=== PATIENT | female | born 1960 | race Caucasian/White ===

== ENCOUNTER 2017-10-14 17:19 | Inpatient (IN) | payer BC ==
[2017-10-14] MEDS ORDERED: ACETAMINOPHEN 1,000 MG/100 ML BTL IVPB ONE (18:15)
[2017-10-14] MEDS ORDERED: 0.9 % SODIUM CHLORIDE 1000ML 1,000 ML IV SCH (18:15)
--- NOTE | 2017-10-14 18:18 | Emergency Department Record ---
History of Present Illness - General Chief complaint: Flank Pain Stated complaint: FLANK PAIN/NAUSEA Time Seen by Provider: 10/14/17 18:14 Source: Patient Mode of Arrival: Ambulatory Limitations: No limitations - History of Present Illness Initial comments: 57 yo female presents to ED for evaluation of flank pain, urinary urgency, chills, and myalgias that began 3 days ago. Patient reports a history of Lupus , currently takes methotrexate for her symptoms. Patient was told to come to ED for evaluation by her [employer] Specialist. Patient also reports a history of Stage III renal disease resulting from her Lupus. Patient denies vomiting or change in stools, and denies cough/congestion symptoms. MD Complaint: Dysuria Onset/Timin -: Days(s) Radiation: L flank, R flank Severity: Moderate Quality: Aching Consistency: Constant Improves with: None Worsens with: Urination Patient : No Associated Symptoms: Abdominal pain, Dysuria, Fever/chills - Related Data Home Medications Medication Instructions Recorded Confirmed Last Taken Alendronate Sodium [Fosamax] 70 mg PO DAILY 10/14/17 10/14/17 Unknown Alendronate Sodium [Fosamax] 70 mg PO DAILY 10/14/17 10/14/17 Unknown Allopurinol [Zyloprim] 300 mg PO DAILY 10/14/17 10/14/17 Unknown Allopurinol [Zyloprim] 300 mg PO DAILY 10/14/17 10/14/17 Unknown Atorvastatin Calcium [Lipitor] 10 mg PO DAILY 10/14/17 10/14/17 Unknown Cetirizine HCl 10 mg PO DAILY 10/14/17 10/14/17 Unknown Cyclobenzaprine HCl 10 mg PO DAILY 10/14/17 10/14/17 Unknown Diltiazem HCl [Diltiazem 24Hr ER] 120 mg PO DAILY 10/14/17 10/14/17 Unknown Diphenhydramine HCl [Benadryl] 25 mg PO DAILY 10/14/17 10/14/17 Unknown Duloxetine HCl [Cymbalta] 60 mg PO DAILY 10/14/17 10/14/17 Unknown Ergocalciferol (Vitamin D2) 50,000 unit PO WEEKLY 10/14/17 10/14/17 Unknown [Vitamin D2] Fexofenadine HCl [Esthela Allergy] 60 mg PO DAILY 10/14/17 10/14/17 Unknown Fluticasone/Vilanterol [Breo 1 each IH DAILY 10/14/17 10/14/17 Unknown Ellipta 200-25 Mcg INH] Folic Acid 1 mg PO DAILY 10/14/17 10/14/17 Unknown Ibuprofen [Advil] 200 mg PO DAILY 10/14/17 10/14/17 Unknown Levothyroxine Sodium 125 mcg PO DAILY 10/14/17 10/14/17 Unknown Methocarbamol [Robaxin] 1 tab PO DAILY 10/14/17 10/14/17 Unknown Methotrexate Sodium [Trexall] 2.5 mg PO DAILY 10/14/17 10/14/17 Unknown Nystatin 5 ml PO DAILY 10/14/17 10/14/17 Unknown Ondansetron HCl [Zofran] 4 mg PO ASDIR 10/14/17 10/14/17 Unknown Ondansetron HCl [Zofran] 4 mg PO DAILY 10/14/17 10/14/17 Unknown Sitagliptin Phosphate [Januvia] 50 mg PO DAILY 10/14/17 10/14/17 Unknown Topiramate [Topamax] 50 mg PO DAILY 10/14/17 10/14/17 Unknown Allergies Allergy/AdvReac Type Severity Reaction Status Date / Time celecoxib [From Celebrex] Allergy HIVES Verified 10/14/17 18:25 Penicillins Allergy PT UNSURE Verified 10/14/17 18:25 OF REACTION Review of Systems Constitutional: Reports: Chills, Malaise. Denies: Fever, Night sweats Eyes: Denies: Eye discharge, Eye pain ENT: Denies: Congestion, Ear pain, Epistaxis Respiratory: Denies: Cough, Dyspnea Cardiovascular: Denies: Chest pain, Dyspnea on exertion Endocrine: Denies: Fatigue, Heat or cold intolerance Gastrointestinal: Reports: Abdominal pain, Nausea. Denies: Constipation, Vomiting Genitourinary: Reports: Dysuria, Frequency. Denies: Incontinence, Retention Musculoskeletal: Reports: Back pain, Myalgia. Denies: Arthralgia Skin: Denies: Bruising, Change in color Neurological: Denies: Abnormal gait, Confusion, Headache, Tingling, Tremors Psychiatric: Denies: Anxiety Hematological/Lymphatic: Denies: Anemia, Blood Clots Physical Exam - General General Appearance: Alert, Oriented x3, Cooperative, Moderate distress Limitations: No limitations - Head Head exam: Atraumatic, Normocephalic, Normal inspection Head exam detail: negative: Abrasion, Contusion, Elam's sign, General tenderness, Hematoma, Laceration - Eye Eye exam: Normal appearance. negative: Conjunctival injection, Periorbital swelling, Periorbital tenderness, Scleral icterus - ENT Ear exam: negative: Auricular hematoma, Auricular trauma Nasal Exam: negative: Active bleeding, Discharge, Dried blood, Foreign body Mouth exam: negative: Drooling, Laceration, Muffled voice, Tongue elevation - Neck Neck exam: Normal inspection. negative: Meningismus, Tenderness - Respiratory Respiratory exam: Normal lung sounds bilaterally. negative: Respiratory distress, Rhonchi, Stridor, Wheezes - Cardiovascular Cardiovascular Exam: Regular rate, Normal rhythm, Normal heart sounds - GI/Abdominal GI/Abdominal exam: Soft, Tenderness (TTP to the suprapubic region on examination , no rebound or guarding are present.). negative: Rebound, Rigid - Rectal Rectal exam: Deferred - exam: Deferred - Extremities Extremities exam: Normal inspection. negative: Calf tenderness, Pedal edema, Tenderness - Back Back exam: Reports: CVA tenderness (R), CVA tenderness (L) - Neurological Neurological exam: Alert, Normal gait, Oriented X3 - Psychiatric Psychiatric exam: Anxious, Normal affect. negative: Agitated - Skin Skin exam: Normal color. negative: Abrasion Type of lesion: negative: abrasion Course - Reevaluation(s) Reevaluation #1: 10/14/17 19:01 Labs reviewed: WBC 14.3 UA reviewed: >50 WBCs 10-15 RBCs Few Bacteria 0-2 Epithelial cells Rocephin ordered in addition to Ofirmev (hanging currently). Reevaluation #2: 10/14/17 19:16 Comprehensive panel has resulted: Lipase 93 BUN 23/Creatinine 1.3. Rocephin is infusing, will admit for further evaluation. Reevaluation #3: 10/14/17 19:25 Patient was updated on all results, and reports that her symptoms are greatly improved following Ofirmev. Temperature down to 100.8. Will admit for treatment of her Pyelonephritis at this time. There is no clinical suspicion for infected ureteral stone given the patient's history and examination. Case was discussed with Michelle (admitting PA) who is in agreement with the plan of care as discussed. Medical Decision Making - Lab Data Result diagrams: 10/14/17 18:30 10/14/17 18:30 Disposition Disposition: Admit Clinical Impression: Pyelonephritis Disposition: Still a Patient at [facility] Decision to Admit: Admit from ER Decision to Admit Date: 10/14/17 Decision to Admit Time: 19:17 Condition: (2) Stable Time of Disposition: 19:17 Quality - Quality Measures Quality Measures: N/A - Blood Pressure Screening Does Patient Have Any of the Following: No Blood Pressure Classification: Hypertensive Reading Systolic Measurement: 160 Diastolic Measurement: 79 Screening for High Blood Pressure: < First Hypertensive BP, F/U Documented > [ [id number]] First Hypertensive Follow-up Interventions: Referral to alternative/primary care provider.
[2017-10-14 18:42] LABS: BASO % 0.3 % (0-6); EOS % 1.4 % (0-6); HEMATOCRIT 46.6 % (35.0-47.0); HEMOGLOBIN 14.9 gm/dl (11.6-16.0); LYMPH % 8.2 % (16-45); MEAN CELL VOLUME 98.9 fl (81-97); MEAN CORPUSCULAR HEMOGLOBIN 31.6 pg (27-33); MEAN PLATELET VOLUME 9.5 fl (7.4-10.4); MONO % 10.1 % (0-9); PLATELET COUNT 354 K/uL (130-400); RED BLOOD COUNT 4.71 M/uL (3.80-5.40); RED CELL DISTRIBUTION WIDTH 14.6 % (11.5-14.5); WHITE BLOOD COUNT W/O DIFF 14.3 K/uL (4.2-12.2)
[2017-10-14 18:43] LABS: URINE APPEARANCE CLEAR; URINE BILIRUBIN NEGATIVE (NEGATIVE); URINE BLOOD LARGE (NEGATIVE); URINE COLOR YELLOW; URINE GLUCOSE (UA) NEGATIVE (NEGATIVE); URINE KETONE NEGATIVE (NEGATIVE); URINE LEUKOCYTE ESTERASE LARGE (NEGATIVE); URINE NITRITE NEGATIVE (NEGATIVE); URINE PROTEIN TRACE (NEGATIVE); URINE UROBILINOGEN 0.2 E.U./dL (0.20 - 1.00)
[2017-10-14 18:51] LABS: URINE BACTERIA FEW; URINE EPITHELIAL CELLS 0 - 2 (FEW); URINE WBC >50 (0-2/hpf)
[2017-10-14 18:58] LABS: BILIRUBIN,TOTAL 0.2 mg/dL (0.2-1.0); CREATININE 1.3 mg/dL (0.5-0.9)
[2017-10-14 18:59] LABS: TOTAL PROTEIN 7.2 g/dL (6.6-8.7)
[2017-10-14] MEDS ORDERED: CEFTRIAXONE SODIUM 1 GM in 0.9 % SODIUM CHLORIDE 100ML 100 ML IVPB ONE (19:02)
[2017-10-14 19:03] LABS: ALB/GLOB RATIO 1.7 (1.1-1.8); ALBUMIN 4.5 g/dL (4.0-5.0)
[2017-10-14] MEDS ORDERED: IBUPROFEN 600 MG TABLET PO PRN (20:11)
[2017-10-14] MEDS ORDERED: CEFTRIAXONE SODIUM 1 GM in 0.9 % SODIUM CHLORIDE 100ML 100 ML IVPB SCH (20:11)
[2017-10-14] MEDS ORDERED: 0.9 % SODIUM CHLORIDE 1000ML 1,000 ML IV PRN (20:11)
[2017-10-14] MEDS: ATORVASTATIN 20 MG TABLET PO SCH (21:30)
[2017-10-14] MEDS: DULOXETINE HCL 30 MG CAPSULE.DR PO SCH (21:30)
[2017-10-15] MEDS: ACETAMINOPHEN 500 MG TABLET PO PRN ×2 (06:28→12:41)
[2017-10-15] MEDS: LEVOTHYROXINE SODIUM 125 MCG TABLET PO SCH (07:00)
[2017-10-15] MEDS: DULOXETINE HCL 30 MG CAPSULE.DR PO SCH (09:33)
[2017-10-15] MEDS: TOPIRAMATE 25MG TABLET PO SCH (09:33)
[2017-10-15] MEDS: LORATADINE 10 MG TABLET PO SCH (09:34)
[2017-10-15] MEDS: ALLOPURINOL 100 MG TAB PO SCH (09:34)
[2017-10-15] MEDS: DILTIAZEM HCL 120 MG ER CAPSULE PO SCH (09:34)
[2017-10-15] MEDS: CYCLOBENZAPRINE 10MG TABLET PO SCH (09:40)
[2017-10-15] MEDS: JANUVIA 50 MG MC SCH (09:40)
[2017-10-15 09:58] LABS: HEMATOCRIT 39.6 % (35.0-47.0); HEMOGLOBIN 12.7 gm/dl (11.6-16.0); MEAN CELL VOLUME 98.3 fl (81-97); MEAN CORPUSCULAR HEMOGLOBIN 31.5 pg (27-33); MEAN CORPUSCULAR HGB CONC 32.1 g/dl (32-36); MEAN PLATELET VOLUME 9.6 fl (7.4-10.4); PLATELET COUNT 288 K/uL (130-400); RED BLOOD COUNT 4.03 M/uL (3.80-5.40); RED CELL DISTRIBUTION WIDTH 14.5 % (11.5-14.5); WHITE BLOOD COUNT W/O DIFF 15.8 K/uL (4.2-12.2)
[2017-10-15 09:59] LABS: ALB/GLOB RATIO 1.5 (1.1-1.8); ALBUMIN 3.6 g/dL (4.0-5.0); BILIRUBIN,TOTAL 0.5 mg/dL (0.2-1.0); CREATININE 1.3 mg/dL (0.5-0.9)
[2017-10-15] MEDS ORDERED: Non-Formulary MISC (Duloxetine Hcl [Cymbalta] 60 MG) PO SCH (10:00)
[2017-10-15] MEDS ORDERED: CETIRIZINE HCL 10 MG PO SCH (10:00)
[2017-10-15] MEDS ORDERED: Non-Formulary MISC (Atorvastatin Calcium [Lipitor] 10 MG) PO SCH (10:00)
[2017-10-15] MEDS ORDERED: ALENDRONATE SODIUM 70 MG PO SCH (10:00)
[2017-10-15] MEDS ORDERED: METHOCARBAMOL PO SCH (10:00)
[2017-10-15] MEDS ORDERED: CYCLOBENZAPRINE 10MG TABLET PO SCH (10:00)
[2017-10-15] MEDS ORDERED: LEVOTHYROXINE SODIUM 125 MCG PO SCH (10:00)
[2017-10-15] MEDS ORDERED: DULOXETINE HCL 30 MG CAPSULE.DR PO SCH (10:00)
[2017-10-15] MEDS ORDERED: ALLOPURINOL 300 MG PO SCH (10:00)
[2017-10-15] MEDS ORDERED: SITAGLIPTIN PHOSPHATE 50 MG PO SCH (10:00)
[2017-10-15] MEDS ORDERED: BREO (FLUTICASONE/VILANTEROL) 200MCG/25MCG INHALER INH SCH (10:00)
[2017-10-15] MEDS ORDERED: METHOTREXATE SODIUM 2.5 MG PO SCH (10:00)
[2017-10-15] MEDS ORDERED: TOPIRAMATE 50 MG PO SCH (10:00)
[2017-10-15] MEDS: BREO (FLUTICASONE/VILANTEROL) 200MCG/25MCG INHALER INH SCH (10:29)
--- NOTE | 2017-10-15 12:18 | History & Physical ---
History of Present Illness - Date of Service Date of Service for History & Physical: 10/15/17 - History of Present Illness Admitting Diagnosis: Pyelonephritis. Immunosuppessed status History of Present Illness: Mrs. Gutiérrez is a 57 year-old female who presented the the ED on with complaint of flank pain, urinary urgency, chills, and myalgias that began 3 days prior. She was advised to come to the ED for evaluation by her navigating officer. She denied vomiting, cough/congestion, but she did report some diarrhea for 3 days. Her history includes lupus (currently taking methotrexate) , state III renal disease from lupus, fibro, hypothyroidism, palpitations, asthma, and DM. In the ED, her vitals were: BP 185/94, RR 20, HR 123, 99% on RA, and T 102.8F. Labs revealed WBC 14.3, BUN 23/creatinine 1.3, UA > 50 WBCs, 10-15 RBCs , few bacteria, 0-2 epithelial cells. She was started on IV rocephin 1gm and a dose of ofirmev was administered. Her temp did decrease to 100.8F. Based on her comorbidities, immunosuppression, and UA, she was admitted for management of pyelonephritis. 10/15/17 1000: Pt. is resting in bed. She reports improved flank pain, however, she states she is till experiencing bladder spasms and urinary urgency. She has remained afebrile since last night. Repeat labs today showed WBC of 15.8, BUN 18/ Creatinine 1.3. IV abx changed to Cipro 500mg bid and added pyridium 90mg tid for symptom control. Urine culture is pending. Holding methotrexate during admission d/t current infection. Will continue to monitor and recheck labs tomorrow morning. Travel Screening - Travel/Exposure Within Last 30 Days Have you traveled within the last 30 days?: Yes Location Detail:: [place] - Travel/Exposure Within Last Year Have you traveled outside the [place] in the last year?: Yes Location Detail:: cruise [place], [place], [place] - Additonal Travel Details Have you been exposed to anyone with a communicable illness?: No - Travel Symptoms Symptom Screening: None Review of Systems Constitutional: Reports: Chills, Malaise. Denies: Fever, Night sweats Eyes: Denies: Eye discharge, Eye pain ENT: Denies: Congestion, Ear pain, Epistaxis Respiratory: Denies: Cough, Dyspnea Cardiovascular: Denies: Chest pain, Dyspnea on exertion Endocrine: Denies: Fatigue, Heat or cold intolerance Gastrointestinal: Reports: Abdominal pain, Nausea. Denies: Constipation, Vomiting Genitourinary: Reports: Dysuria, Frequency. Denies: Incontinence, Retention Musculoskeletal: Reports: Back pain, Myalgia. Denies: Arthralgia Skin: Denies: Bruising, Change in color Neurological: Denies: Abnormal gait, Confusion, Headache, Tingling, Tremors Psychiatric: Denies: Anxiety Hematological/Lymphatic: Denies: Anemia, Blood Clots Past Medical History - SOCIAL HISTORY Smoking Status: Never smoker Alcohol Use: None Drug Use: None - RESPIRATORY Hx Respiratory Disorders: Yes Hx Asthma: Yes - CARDIOVASCULAR Hx Cardio Disorders: Yes Hx Palpitations: Yes - NEURO Hx Neuro Disorders: No - GI Hx GI Disorders: Yes - Hx Genitourinary Disorders: Yes Hx Renal Disease: Yes - ENDOCRINE Hx Endocrine Disorders: Yes Hx Diabetes: Yes Hx Thyroid Disease: Yes - MUSCULOSKELETAL Hx Musculoskeletal Disorders: Yes Hx Fibromyalgia: Yes Comment:: lupus - PSYCH Hx Psych Problems: No - HEMATOLOGY/ONCOLOGY Hx Hematology/Oncology Disorders: No Family Medical History Any Significant Family History?: No H&P Meds/Allergies - Allergies Allergies: Allergies Allergy/AdvReac Type Severity Reaction Status Date / Time celecoxib [From Celebrex] Allergy HIVES Verified 10/14/17 18:25 Penicillins Allergy PT UNSURE Verified 10/14/17 18:25 OF REACTION - Home Medications Home Medications Medication Instructions Recorded Confirmed Last Taken Alendronate Sodium [Fosamax] 70 mg PO DAILY 10/14/17 10/14/17 Unknown Alendronate Sodium [Fosamax] 70 mg PO DAILY 10/14/17 10/14/17 Unknown Allopurinol [Zyloprim] 300 mg PO DAILY 10/14/17 10/14/17 Unknown Allopurinol [Zyloprim] 300 mg PO DAILY 10/14/17 10/14/17 Unknown Atorvastatin Calcium [Lipitor] 10 mg PO DAILY 10/14/17 10/14/17 Unknown Cetirizine HCl 10 mg PO DAILY 10/14/17 10/14/17 Unknown Cyclobenzaprine HCl 10 mg PO DAILY 10/14/17 10/14/17 Unknown Diltiazem HCl [Diltiazem 24Hr ER] 120 mg PO DAILY 10/14/17 10/14/17 Unknown Diphenhydramine HCl [Benadryl] 25 mg PO DAILY 10/14/17 10/14/17 Unknown Duloxetine HCl [Cymbalta] 60 mg PO DAILY 10/14/17 10/14/17 Unknown Ergocalciferol (Vitamin D2) 50,000 unit PO WEEKLY 10/14/17 10/14/17 Unknown [Vitamin D2] Fexofenadine HCl [Esthela Allergy] 60 mg PO DAILY 10/14/17 10/14/17 Unknown Fluticasone/Vilanterol [Breo 1 each IH DAILY 10/14/17 10/14/17 Unknown Ellipta 200-25 Mcg INH] Folic Acid 1 mg PO DAILY 10/14/17 10/14/17 Unknown Ibuprofen [Advil] 200 mg PO DAILY 10/14/17 10/14/17 Unknown Levothyroxine Sodium 125 mcg PO DAILY 10/14/17 10/14/17 Unknown Methocarbamol [Robaxin] 1 tab PO DAILY 10/14/17 10/14/17 Unknown Methotrexate Sodium [Trexall] 2.5 mg PO DAILY 10/14/17 10/14/17 Unknown Nystatin 5 ml PO DAILY 10/14/17 10/14/17 Unknown Ondansetron HCl [Zofran] 4 mg PO ASDIR 10/14/17 10/14/17 Unknown Ondansetron HCl [Zofran] 4 mg PO DAILY 10/14/17 10/14/17 Unknown Sitagliptin Phosphate [Januvia] 50 mg PO DAILY 10/14/17 10/14/17 Unknown Topiramate [Topamax] 50 mg PO DAILY 10/14/17 10/14/17 Unknown - Active Medications Active Medications: Current Medications Acetaminophen (Tylenol 500mg Tab) 1,000 mg PO Q6H PRN PRN Reason: PAIN - MILD(1-4)/FEVER Last Admin: 10/15/17 06:28 Dose: 1,000 mg Allopurinol (Zyloprim) 300 mg PO DAILY [facility] Last Admin: 10/15/17 09:34 Dose: 300 mg Atorvastatin Calcium (Lipitor) 10 mg PO QHS [facility] Last Admin: 10/14/17 21:30 Dose: 10 mg Ciprofloxacin (Cipro) 500 mg PO Q12HR [facility] Stop: 10/21/17 11:01 Cyclobenzaprine HCl (Flexeril) 10 mg PO DAILY [facility] Last Admin: 10/15/17 09:40 Dose: Not Given Cyclobenzaprine HCl (Flexeril) 10 mg PO DAILY [facility] Last Admin: 10/15/17 09:40 Dose: Not Given Diltiazem HCl (Cardizem Cd) 120 mg PO DAILY [facility] Last Admin: 10/15/17 09:34 Dose: 120 mg Duloxetine HCl (Cymbalta) 120 mg PO DAILY [facility] Last Admin: 10/15/17 09:33 Dose: 120 mg Ibuprofen (Motrin 600mg) 600 mg PO Q6H PRN PRN Reason: FEVER Levothyroxine Sodium (Synthroid) 125 mcg PO DAILYTHY [facility] Last Admin: 10/15/17 07:00 Dose: 125 mcg Loratadine (Claritin) 10 mg PO DAILY [facility] Last Admin: 10/15/17 09:34 Dose: 10 mg Non-Formulary Medication (Alendronate Sodium [Fosamax]) 70 mg PO DAILY [facility] Non-Formulary Medication (Methotrexate Sodium [Trexall]) 2.5 mg PO DAILY [facility] Patient Own Med: (Januvia 50mg) 1 each MC DAILY [facility] Last Admin: 10/15/17 09:40 Dose: 1 each Phenazopyridine HCl (Azo Urinary Pain Relief) 95 mg PO TID [facility] Topiramate (Topiramate) 50 mg PO DAILY [facility] Last Admin: 10/15/17 09:33 Dose: 50 mg Physical Exam - Vital Signs Vital Signs: Vital Signs - Last 24 Hrs Temp Pulse Pulse Resp BP BP Pulse Ox 10/15/17 10:00 98.2 F 119 H 20 153/82 93 L 10/15/17 09:00 20 10/15/17 06:33 98.7 F 124 H 16 150/86 95 10/15/17 03:52 98.7 F 120 H 16 156/95 95 10/14/17 21:00 16 10/14/17 20:11 98.9 F 112 H 16 153/86 100 10/14/17 19:52 100.8 F H 120 H 96 H 160/79 10/14/17 18:36 102.8 F H 123 H 20 185/94 99 - General General Appearance: Alert, Oriented x3, Cooperative, No acute distress Limitations: No limitations - Head Head exam: Atraumatic, Normocephalic, Normal inspection Head exam detail: negative: Abrasion, Contusion, Elam's sign, General tenderness, Hematoma, Laceration - Eye Eye exam: Normal appearance. negative: Conjunctival injection, Periorbital swelling, Periorbital tenderness, Scleral icterus - ENT Ear exam: negative: Auricular hematoma, Auricular trauma Nasal Exam: negative: Active bleeding, Discharge, Dried blood, Foreign body Mouth exam: negative: Drooling, Laceration, Muffled voice, Tongue elevation - Neck Neck exam: Normal inspection. negative: Meningismus, Tenderness - Respiratory Respiratory exam: Normal lung sounds bilaterally. negative: Respiratory distress, Rhonchi, Stridor, Wheezes - Cardiovascular Cardiovascular Exam: Regular rate, Normal rhythm, Normal heart sounds - GI/Abdominal GI/Abdominal exam: Soft, Normal bowel sounds, Tenderness (TTP to the suprapubic region on examination, no rebound or guarding are present.). negative: Rebound , Rigid - Rectal Rectal exam: Deferred - exam: Deferred - Extremities Extremities exam: Normal inspection. negative: Calf tenderness, Pedal edema, Tenderness - Back Back exam: Denies: CVA tenderness (R), CVA tenderness (L) - Neurological Neurological exam: Alert, Normal gait, Oriented X3 - Psychiatric Psychiatric exam: Anxious, Normal affect. negative: Agitated - Skin Skin exam: Normal color. negative: Abrasion Type of lesion: negative: abrasion Results - Labs Result Diagrams: 10/15/17 09:26 10/15/17 09:26 Labs Last 24 Hours: Laboratory Results - last 24 hr 10/14/17 10/14/17 10/14/17 18:30 18:30 18:30 WBC 14.3 H RBC 4.71 Hgb 14.9 Hct 46.6 MCV 98.9 H MCH 31.6 MCHC 32.0 RDW 14.6 H Plt Count 354 MPV 9.5 Gran % 80.0 Neutrophils % Lymphocytes % 8.2 L Monocytes % 10.1 H Eosinophils % 1.4 Basophils % 0.3 Lymphocytes Monocytes Sodium 140 Potassium 3.8 Chloride 101 Carbon Dioxide 26.0 Anion Gap 13.0 BUN 23 H Creatinine 1.3 H Estimated GFR 45 POC Glucose Random Glucose 160 H Lactic Acid Calcium 10.9 H Total Bilirubin 0.20 AST 19 ALT 19 Alkaline Phosphatase 81 Total Protein 7.2 Albumin 4.5 Globulin 2.7 Albumin/Globulin Ratio 1.7 Lipase 93 H Urine Color Yellow Urine Appearance Clear Urine pH 6.5 Ur Specific [place] 1.015 Urine Protein Trace H Urine Glucose (UA) Negative Urine Ketones Negative Urine Blood Large H Urine Nitrite Negative Urine Bilirubin Negative Urine Urobilinogen 0.2 Ur Leukocyte Esterase Large H Urine RBC 10 - 15 Urine WBC >50 Ur Epithelial Cells 0 - 2 Urine Bacteria Few 10/14/17 10/15/17 10/15/17 19:10 07:30 09:26 WBC 15.8 H RBC 4.03 Hgb 12.7 Hct 39.6 MCV 98.3 H MCH 31.5 MCHC 32.1 RDW 14.5 Plt Count 288 MPV 9.6 Gran % Neutrophils % 80.0 Lymphocytes % Monocytes % Eosinophils % Not Reportable Basophils % Not Reportable Lymphocytes 9.0 L Monocytes 11.0 H Sodium Potassium Chloride Carbon Dioxide Anion Gap BUN Creatinine Estimated GFR POC Glucose 138 H Random Glucose Lactic Acid 2.1 Calcium Total Bilirubin AST ALT Alkaline Phosphatase Total Protein Albumin Globulin Albumin/Globulin Ratio Lipase Urine Color Urine Appearance Urine pH Ur Specific [place] Urine Protein Urine Glucose (UA) Urine Ketones Urine Blood Urine Nitrite Urine Bilirubin Urine Urobilinogen Ur Leukocyte Esterase Urine RBC Urine WBC Ur Epithelial Cells Urine Bacteria 10/15/17 09:26 WBC RBC Hgb Hct MCV MCH MCHC RDW Plt Count MPV Gran % Neutrophils % Lymphocytes % Monocytes % Eosinophils % Basophils % Lymphocytes Monocytes Sodium 140 Potassium 3.8 Chloride 104 Carbon Dioxide 23.0 Anion Gap 13.0 BUN 18 Creatinine 1.3 H Estimated GFR 45 POC Glucose Random Glucose 173 H Lactic Acid Calcium 10.4 H Total Bilirubin 0.50 AST 13 ALT 14 Alkaline Phosphatase 62 Total Protein 6.0 L Albumin 3.6 L Globulin 2.4 Albumin/Globulin Ratio 1.5 Lipase Urine Color Urine Appearance Urine pH Ur Specific [place] Urine Protein Urine Glucose (UA) Urine Ketones Urine Blood Urine Nitrite Urine Bilirubin Urine Urobilinogen Ur Leukocyte Esterase Urine RBC Urine WBC Ur Epithelial Cells Urine Bacteria VTE H&P Assessment - Risk for VTE Risk for VTE: Yes Risk Level: Low Risk Assessment Date: 10/15/17 Risk Assessment Time: 12:39 VTE Orders Placed or Will Be Placed: Yes Plan - Inpatient Certification Inpatient Certification: Admit to inpatient care: Based on my medical assessment, after consideration of patient's risk factors (age, co-morbidities and patient presenting symptoms and acuity), I expect that this patient will remain in the hospital greater than or equal to two midnights and that the services needed warrant inpatient care because: Patient Risk Factors: [comorbidities, immunosuppression] Estimated length of stay: [48-72 hours] The patient may reasonably be expected to be discharged or transferred to a hospital within 96 hours after admission to [facility]. Services needed: [IV abx, lab monitoring of renal function and inflammation] Post hospital care (if known): [] I certify that my determination is in accordance with my understanding of Medicare requirements for reasonable and necessary inpatient services. 10/15/17 12:39 - Detailed Diagnosis and Plan (1) Pyelonephritis Current Visit: Yes Status: Acute Base Code: N12 - TUBULO-INTERSTITIAL NEPHRITIS, NOT SPCF ACUTE OR CHRONIC Comment: 10/15/17: -UA in ED pos. for large blood and leuks, sent for culture -Dx with pyelonephritis based on presenting S/S, febrile, elevated WBC, bilateral flank pain -Changed IV rocephin to PO cipro 500mg bid for total of 7 days, added pyridium for urinary pain -Will continue to monitor vital signs and labs (2) Immunosuppression Current Visit: Yes Status: Acute Base Code: D89.9 - DISORDER INVOLVING THE IMMUNE MECHANISM, UNSPECIFIED Comment: 10/15/17: -Immunosuppression secondary to methotrexate use with lupus -Will hold methotrexate during hospitalization due to current pyelonephritis -Will continue to monitor labs and immune response with WBC differential (3) At risk for deep venous thrombosis Current Visit: Yes Status: Acute Base Code: Z91.89 - OTH PERSONAL RISK FACTORS, NOT ELSEWHERE CLASSIFIED Comment: 10/15/17: -40mg SC lovenox ordered for DVT prophylaxis (4) Full code status Current Visit: Yes Status: Acute Base Code: Z78.9 - OTHER SPECIFIED HEALTH STATUS Comment: 10/15/17: -Pt. is a full code
[2017-10-15] MEDS: CIPROFLOXACIN HCL 500 MG TABLET PO SCH ×2 (12:38→21:27)
[2017-10-15] MEDS: PHENAZOPYRIDINE HCL 95 MG TABLET PO SCH ×3 (12:52→22:00)
[2017-10-15] MEDS: IBUPROFEN 600 MG TABLET PO PRN (15:29)
[2017-10-15] MEDS: ENOXAPARIN 40 MG/0.4 ML SYR SQ SCH (21:27)
[2017-10-15] MEDS: ATORVASTATIN 20 MG TABLET PO SCH (21:27)
[2017-10-16] MEDS: LEVOTHYROXINE SODIUM 125 MCG TABLET PO SCH (06:14)
[2017-10-16] MEDS: ACETAMINOPHEN 500 MG TABLET PO PRN ×3 (06:16→21:18)
[2017-10-16 06:38] LABS: BASO % 0.2 % (0-6); EOS % 2.3 % (0-6); GRAN % 79.7 % (47-80); HEMATOCRIT 41.4 % (35.0-47.0); HEMOGLOBIN 13.2 gm/dl (11.6-16.0); LYMPH % 8.1 % (16-45); MEAN CELL VOLUME 98.6 fl (81-97); MEAN CORPUSCULAR HEMOGLOBIN 31.4 pg (27-33); MEAN CORPUSCULAR HGB CONC 31.9 g/dl (32-36); MEAN PLATELET VOLUME 9.5 fl (7.4-10.4); MONO % 9.7 % (0-9); PLATELET COUNT 270 K/uL (130-400); RED CELL DISTRIBUTION WIDTH 14.2 % (11.5-14.5); WHITE BLOOD COUNT W/O DIFF 10.1 K/uL (4.2-12.2)
[2017-10-16 06:53] LABS: ALB/GLOB RATIO 1.4 (1.1-1.8); ALBUMIN 3.9 g/dL (4.0-5.0); BILIRUBIN,TOTAL 0.4 mg/dL (0.2-1.0); CREATININE 1.2 mg/dL (0.5-0.9); TOTAL PROTEIN 6.7 g/dL (6.6-8.7)
[2017-10-16] MEDS: IBUPROFEN 600 MG TABLET PO PRN (08:16)
[2017-10-16] MEDS: BREO (FLUTICASONE/VILANTEROL) 200MCG/25MCG INHALER INH SCH (10:14)
[2017-10-16] MEDS: ALLOPURINOL 100 MG TAB PO SCH (10:26)
[2017-10-16] MEDS: ENOXAPARIN 40 MG/0.4 ML SYR SQ SCH (10:26)
[2017-10-16] MEDS: DULOXETINE HCL 30 MG CAPSULE.DR PO SCH (10:26)
[2017-10-16] MEDS: TOPIRAMATE 25MG TABLET PO SCH (10:27)
[2017-10-16] MEDS: CIPROFLOXACIN HCL 500 MG TABLET PO SCH ×2 (10:27→21:12)
[2017-10-16] MEDS: LORATADINE 10 MG TABLET PO SCH (10:27)
[2017-10-16] MEDS: CYCLOBENZAPRINE 10MG TABLET PO SCH (10:27)
[2017-10-16] MEDS: DILTIAZEM HCL 120 MG ER CAPSULE PO SCH (10:27)
[2017-10-16] MEDS: PHENAZOPYRIDINE HCL 95 MG TABLET PO SCH ×3 (10:29→21:14)
[2017-10-16] MEDS: JANUVIA 50 MG MC SCH (10:34)
--- NOTE | 2017-10-16 16:54 | Physician Progress Note ---
Subjective - Date Date of Physician Progress Note: 10/16/17 - Subjective Subjective Comment: Temp of 101.4 this morning 2 hours after acetominophen 1,000mg administration. Ibuprofen 600mg was administered. CT ordered to assess possible underlying cause of infection/obstruction. (without contrast due to pt's renal function) Inflammatory response may be inaccurate with immunosuppression caused by methotrexate use and pt. remains febrile. CT showed several non-obstructing renal calculi and moderate right renal atrophy. Will continue to treat fever with tylenol and motrin and plan to d/c home when afebrile for 24 hours. Associated symptoms: Fever/chills Objective - Vital Signs Vital Signs: Vital Signs - Last 24 Hrs Temp Pulse Resp BP Pulse Ox 10/16/17 12:00 99.0 F 115 H 18 114/86 95 10/16/17 08:20 121 H 16 10/16/17 08:05 101.4 F H 123 H 18 139/92 95 10/16/17 06:21 100.1 F H 121 H 16 138/95 95 10/15/17 22:52 98.1 F 103 H 16 134/90 96 10/15/17 21:00 16 10/15/17 19:05 98.8 F 107 H 18 142/88 97 - General General Appearance: Alert, Oriented x3, Cooperative, No acute distress Limitations: No limitations - Head Head exam: Atraumatic, Normocephalic, Normal inspection Head exam detail: negative: Abrasion, Contusion, Elam's sign, General tenderness, Hematoma, Laceration - Eye Eye exam: Normal appearance. negative: Conjunctival injection, Periorbital swelling, Periorbital tenderness, Scleral icterus - ENT Ear exam: negative: Auricular hematoma, Auricular trauma Nasal Exam: negative: Active bleeding, Discharge, Dried blood, Foreign body Mouth exam: negative: Drooling, Laceration, Muffled voice, Tongue elevation - Neck Neck exam: Normal inspection. negative: Meningismus, Tenderness - Respiratory Respiratory exam: Normal lung sounds bilaterally. negative: Respiratory distress, Rhonchi, Stridor, Wheezes - Cardiovascular Cardiovascular Exam: Regular rate, Normal rhythm, Normal heart sounds - GI/Abdominal GI/Abdominal exam: Soft, Normal bowel sounds, Tenderness (TTP to the suprapubic region on examination, no rebound or guarding are present.). negative: Rebound , Rigid - Rectal Rectal exam: Deferred - exam: Deferred - Extremities Extremities exam: Normal inspection. negative: Calf tenderness, Pedal edema, Tenderness - Back Back exam: Denies: CVA tenderness (R), CVA tenderness (L) - Neurological Neurological exam: Alert, Normal gait, Oriented X3 - Psychiatric Psychiatric exam: Anxious, Normal affect. negative: Agitated - Skin Skin exam: Normal color. negative: Abrasion Type of lesion: negative: abrasion Assessment and Plan - Assessment and Plan (1) Pyelonephritis Current Visit: Yes Status: Acute Base Code: N12 - TUBULO-INTERSTITIAL NEPHRITIS, NOT SPCF ACUTE OR CHRONIC Comment: 10/16/17: -UA in ED pos. for large blood and leuks, sent for culture -Dx with pyelonephritis based on presenting S/S, febrile, elevated WBC, bilateral flank pain -Changed IV rocephin to PO cipro 500mg bid for total of 7 days, added pyridium for urinary pain -Will continue to monitor vital signs and labs (2) Immunosuppression Current Visit: Yes Status: Acute Base Code: D89.9 - DISORDER INVOLVING THE IMMUNE MECHANISM, UNSPECIFIED Comment: 10/16/17: -Immunosuppression secondary to methotrexate use with lupus -Will hold methotrexate during hospitalization due to current pyelonephritis -Will continue to monitor labs and immune response with WBC differential (3) At risk for deep venous thrombosis Current Visit: Yes Status: Acute Base Code: Z91.89 - OTH PERSONAL RISK FACTORS, NOT ELSEWHERE CLASSIFIED Comment: 10/16/17: -40mg SC lovenox ordered for DVT prophylaxis (4) Full code status Current Visit: Yes Status: Acute Base Code: Z78.9 - OTHER SPECIFIED HEALTH STATUS Comment: 10/16/17: -Pt. is a full code Results - Labs Result Diagrams: 10/16/17 06:05 10/16/17 06:05 Labs Last 24 Hours: Laboratory Results - last 24 hr 10/15/17 10/16/17 10/16/17 18:05 06:05 06:05 WBC 10.1 RBC 4.20 Hgb 13.2 Hct 41.4 MCV 98.6 H MCH 31.4 MCHC 31.9 L RDW 14.2 Plt Count 270 MPV 9.5 Gran % 79.7 Lymphocytes % 8.1 L Monocytes % 9.7 H Eosinophils % 2.3 Basophils % 0.2 Sodium 136 Potassium 4.4 Chloride 101 Carbon Dioxide 23.0 Anion Gap 12.0 BUN 15 Creatinine 1.2 H Estimated GFR 49 POC Glucose Cancelled Random Glucose 136 H Calcium 10.8 H Total Bilirubin 0.40 AST 16 ALT 18 Alkaline Phosphatase 78 Total Protein 6.7 Albumin 3.9 L Globulin 2.8 Albumin/Globulin Ratio 1.4 - Imaging and Cardiology CT scan - abdomen Status: Pending (Several non-obstructing renal calculin and moderate right renal atrophy) DVT/PE Assessment - Risk for VTE Risk for VTE: No Risk Level: Low Risk Assessment Date: 10/15/17 Risk Assessment Time: 12:39 VTE Orders Placed or Will Be Placed: Yes - Active Medicaitons Current Medications: Current Medications Acetaminophen (Tylenol 500mg Tab) 1,000 mg PO Q6H PRN PRN Reason: PAIN - MILD(1-4)/FEVER Last Admin: 10/16/17 11:57 Dose: 1,000 mg Allopurinol (Zyloprim) 300 mg PO DAILY [facility] Last Admin: 10/16/17 10:26 Dose: 300 mg Atorvastatin Calcium (Lipitor) 10 mg PO QHS [facility] Last Admin: 10/15/17 21:27 Dose: 10 mg Ciprofloxacin (Cipro) 500 mg PO Q12HR [facility] Stop: 10/21/17 11:01 Last Admin: 10/16/17 10:27 Dose: 500 mg Cyclobenzaprine HCl (Flexeril) 10 mg PO DAILY [facility] Last Admin: 10/16/17 10:27 Dose: 10 mg Diltiazem HCl (Cardizem Cd) 120 mg PO DAILY [facility] Last Admin: 10/16/17 10:27 Dose: 120 mg Duloxetine HCl (Cymbalta) 120 mg PO DAILY [facility] Last Admin: 10/16/17 10:26 Dose: 120 mg Enoxaparin Sodium (Lovenox) 40 mg SQ DAILY [facility] Last Admin: 10/16/17 10:26 Dose: 40 mg Ibuprofen (Motrin 600mg) 600 mg PO Q6H PRN PRN Reason: FEVER Last Admin: 10/16/17 08:16 Dose: 600 mg Levothyroxine Sodium (Synthroid) 125 mcg PO DAILYTHY [facility] Last Admin: 10/16/17 06:14 Dose: 125 mcg Loratadine (Claritin) 10 mg PO DAILY [facility] Last Admin: 10/16/17 10:27 Dose: 10 mg Non-Formulary Medication (Alendronate Sodium [Fosamax]) 70 mg PO DAILY [facility] Patient Own Med: (Januvia 50mg) 1 each MC DAILY [facility] Last Admin: 10/16/17 10:34 Dose: Not Given Phenazopyridine HCl (Azo Urinary Pain Relief) 95 mg PO TID [facility] Last Admin: 10/16/17 10:29 Dose: Not Given Topiramate (Topiramate) 50 mg PO DAILY [facility] Last Admin: 10/16/17 10:27 Dose: 50 mg AMI Plan - Labs Result Diagrams: 10/16/17 06:05 10/16/17 06:05
[2017-10-16] MEDS ORDERED: DOCUSATE SODIUM 100 MG CAPSULE PO PRN (20:54)
[2017-10-16] MEDS: ATORVASTATIN 20 MG TABLET PO SCH (21:12)
[2017-10-17] MEDS: LEVOTHYROXINE SODIUM 125 MCG TABLET PO SCH (06:10)
[2017-10-17 06:28] LABS: HEMATOCRIT 43.9 % (35.0-47.0); HEMOGLOBIN 13.8 gm/dl (11.6-16.0); MEAN CELL VOLUME 99.1 fl (81-97); MEAN CORPUSCULAR HEMOGLOBIN 31.2 pg (27-33); MEAN CORPUSCULAR HGB CONC 31.4 g/dl (32-36); MEAN PLATELET VOLUME 9.4 fl (7.4-10.4); PLATELET COUNT 277 K/uL (130-400); RED BLOOD COUNT 4.43 M/uL (3.80-5.40); RED CELL DISTRIBUTION WIDTH 14.2 % (11.5-14.5); WHITE BLOOD COUNT W/O DIFF 5.6 K/uL (4.2-12.2)
[2017-10-17 07:02] LABS: ALB/GLOB RATIO 1.3 (1.1-1.8); ALBUMIN 3.7 g/dL (4.0-5.0); BILIRUBIN,TOTAL 0.2 mg/dL (0.2-1.0); CREATININE 1.3 mg/dL (0.5-0.9); TOTAL PROTEIN 6.6 g/dL (6.6-8.7)
--- NOTE | 2017-10-17 07:24 | CT SCAN REPORT ---
EXAM: CT OF THE ABDOMEN AND PELVIS WITHOUT CONTRAST HISTORY: RIGHT PYELONEPHRITIS AND ABDOMINAL PAIN FOR FOUR DAYS. HISTORY OF LUPUS. TECHNIQUE: Helical CT scan of the abdomen and pelvis was obtained without intravenous or oral contrast. Comparison; None. FINDINGS: The lung bases show minimal linear bands of scar or atelectasis. Ther liver is mildly enlarged measuring 22 cm. Severe low density/fatty change. The spleen has normal size. 2 mm nonobstructive caliceal calculus in the lower pole of the right kidney. 3 mm caliceal calculus in the left kidney with moderate left renal atrophy. No hydronephrosis. No ureteral calculi. No calculi in the urinary bladder. There is limited evaluation of the solid organs without intravenous contrast. No adenopathy. The bowel has normal caliber. There may be slight high density material layering in the gallbladder. The common bile duct is not dilated. No ascites or fluid collections. The bony structures are unremarkable. IMPRESSION: 1. BILATERAL NONOBSTRUCTIVE RENAL CALCULI. NO HYDRONEPHROSIS. THERE IS MODERATE LEFT RENAL ATROPHY. 2. FATTY, MILDLY ENLARGED LIVER. JOB NUMBER: [id number] [facility]
--- NOTE | 2017-10-17 08:46 | Discharge Summary ---
Providers Discharge Summary Date: 10/17/17 Date of admission: 10/14/17 20:02 Expected Date of Discharge: 10/17/17 Attending physician: KITA MONCADA Primary care physician: MICAELA DUPREE M.D. Physical Exam - Vital Signs Vital Signs: Vital Signs - Last 24 Hrs Temp Pulse Resp BP Pulse Ox 10/17/17 08:05 16 10/17/17 04:00 98.1 F 88 16 138/75 98 10/17/17 00:00 98.4 F 10/16/17 20:19 101 H 16 10/16/17 20:00 98.1 F 101 H 16 139/89 97 10/16/17 16:00 98.8 F 102 H 16 141/86 98 10/16/17 12:00 99.0 F 115 H 18 114/86 95 - General General Appearance: Alert, Oriented x3, Cooperative, No acute distress Limitations: No limitations - Head Head exam: Atraumatic, Normocephalic, Normal inspection Head exam detail: negative: Abrasion, Contusion, Elam's sign, General tenderness, Hematoma, Laceration - Eye Eye exam: Normal appearance. negative: Conjunctival injection, Periorbital swelling, Periorbital tenderness, Scleral icterus - ENT Ear exam: negative: Auricular hematoma, Auricular trauma Nasal Exam: negative: Active bleeding, Discharge, Dried blood, Foreign body Mouth exam: negative: Drooling, Laceration, Muffled voice, Tongue elevation - Neck Neck exam: Normal inspection. negative: Meningismus, Tenderness - Respiratory Respiratory exam: Normal lung sounds bilaterally. negative: Respiratory distress, Rhonchi, Stridor, Wheezes - Cardiovascular Cardiovascular Exam: Regular rate, Normal rhythm, Normal heart sounds - GI/Abdominal GI/Abdominal exam: Soft, Normal bowel sounds, Tenderness (TTP to the suprapubic region on examination, no rebound or guarding are present.). negative: Rebound , Rigid - Rectal Rectal exam: Deferred - exam: Deferred - Extremities Extremities exam: Normal inspection. negative: Calf tenderness, Pedal edema, Tenderness - Back Back exam: Denies: CVA tenderness (R), CVA tenderness (L) - Neurological Neurological exam: Alert, Normal gait, Oriented X3 - Psychiatric Psychiatric exam: Anxious, Normal affect. negative: Agitated - Skin Skin exam: Normal color. negative: Abrasion Type of lesion: negative: abrasion Hospitalization - Hospitalization Admission Diagnosis: Pyelonephritis. Immunosuppessed status - Problem List/Discharge Diagnosis (1) Pyelonephritis Current Visit: Yes Status: Acute Base Code: N12 - TUBULO-INTERSTITIAL NEPHRITIS, NOT SPCF ACUTE OR CHRONIC Comment: 10/17/17: -UA in ED pos. for large blood and leuks, sent for culture -Dx with pyelonephritis based on presenting S/S, febrile, elevated WBC, bilateral flank pain -Pt. has remained afebrile for 24 hours, labs and vitals stable -Will d/c home today and continue cipro 500mg bid for total of 7 days therapy (2) Immunosuppression Current Visit: Yes Status: Acute Base Code: D89.9 - DISORDER INVOLVING THE IMMUNE MECHANISM, UNSPECIFIED Comment: 10/17/17: -Immunosuppression secondary to methotrexate use with lupus -Will hold methotrexate during hospitalization due to current pyelonephritis -Recommend holding methotrexate until f/u with PCP 3-5 days after discharge (3) At risk for deep venous thrombosis Current Visit: Yes Status: Acute Base Code: Z91.89 - OTH PERSONAL RISK FACTORS, NOT ELSEWHERE CLASSIFIED Comment: 10/17/17: -No prophylaxis needed after d/c- pt. will return to normal level of activity (4) Full code status Current Visit: Yes Status: Acute Base Code: Z78.9 - OTHER SPECIFIED HEALTH STATUS Comment: 10/17/17: -Pt. is a full code - Hospitalization Course Hospital Course: Mrs. Gutiérrez is a 57 year-old female who presented the the ED on with complaint of flank pain, urinary urgency, chills, and myalgias that began 3 days prior. She was advised to come to the ED for evaluation by her architecture analyst. She denied vomiting, cough/congestion, but she did report some diarrhea for 3 days. Her history includes lupus (currently taking methotrexate) , state III renal disease from lupus, fibro, hypothyroidism, palpitations, asthma, and DM. In the ED, her vitals were: BP 185/94, RR 20, HR 123, 99% on RA, and T 102.8F. Labs revealed WBC 14.3, BUN 23/creatinine 1.3, UA > 50 WBCs, 10-15 RBCs , few bacteria, 0-2 epithelial cells. She was started on IV rocephin 1gm and a dose of ofirmev was administered. Her temp did decrease to 100.8F. Based on her comorbidities, immunosuppression, and UA, she was admitted for management of pyelonephritis. 10/15/17 1000: Pt. is resting in bed. She reports improved flank pain, however, she states she is till experiencing bladder spasms and urinary urgency. She has remained afebrile since last night. Repeat labs today showed WBC of 15.8, BUN 18/ Creatinine 1.3. IV abx changed to Cipro 500mg bid and added pyridium 90mg tid for symptom control. Urine culture is pending. Holding methotrexate during admission d/t current infection. Will continue to monitor and recheck labs tomorrow morning. 10/16/17 1800: Temp of 101.4 this morning 2 hours after acetominophen 1,000mg administration. Ibuprofen 600mg was administered. CT ordered to assess possible underlying cause of infection/obstruction. (without contrast due to pt 's renal function) Inflammatory response may be inaccurate with immunosuppression caused by methotrexate use and pt. remains febrile. CT showed several non-obstructing renal calculi and moderate left renal atrophy. Will continue to treat fever with tylenol and motrin and plan to d/c home when afebrile for 24 hours. 10/17/17 0930: Pt. is sitting up in bed and she denies flank pain/fever/chills. She has remained afebrile for 24 hours and her labs are stable. Will plan to d/c home today and continue cipro 500mg bid for 8 more doses (total of 7 days abx therapy ). Recommend pt. to f/u with nephrology outpatient. PCP: Dr. Micaela Dupree MD Procedures: Imaging and X-Rays 10/16/17 09:21 ABDOMEN/PELVIS WO CONTRAST [CT] Stat Abnormal Labs: Abnormal Lab Results 10/14/17 10/14/17 10/14/17 Range/Units 18:30 18:30 18:30 WBC 14.3 H (4.2-12.2) K/uL MCV 98.9 H (81-97) fl MCHC (32-36) g/dl RDW 14.6 H (11.5-14.5) % Lymphocytes % 8.2 L (16-45) % Monocytes % 10.1 H (0-9) % Lymphocytes (16-45) % Monocytes (0-9) % BUN 23 H (6-20) mg/dL Creatinine 1.3 H (0.5-0.9) mg/dL POC Glucose (70-110) mg/dL Random Glucose 160 H (74-109) mg/dL Calcium 10.9 H (8.6-10.0) mg/dL Total Protein (6.6-8.7) g/dL Albumin (4.0-5.0) g/dL Lipase 93 H (13-60) U/L Urine Protein Trace H (NEGATIVE) Urine Blood Large H (NEGATIVE) Ur Leukocyte Esterase Large H (NEGATIVE) 10/15/17 10/15/17 10/15/17 Range/Units 07:30 09:26 09:26 WBC 15.8 H (4.2-12.2) K/uL MCV 98.3 H (81-97) fl MCHC (32-36) g/dl RDW (11.5-14.5) % Lymphocytes % (16-45) % Monocytes % (0-9) % Lymphocytes 9.0 L (16-45) % Monocytes 11.0 H (0-9) % BUN (6-20) mg/dL Creatinine 1.3 H (0.5-0.9) mg/dL POC Glucose 138 H (70-110) mg/dL Random Glucose 173 H (74-109) mg/dL Calcium 10.4 H (8.6-10.0) mg/dL Total Protein 6.0 L (6.6-8.7) g/dL Albumin 3.6 L (4.0-5.0) g/dL Lipase (13-60) U/L Urine Protein (NEGATIVE) Urine Blood (NEGATIVE) Ur Leukocyte Esterase (NEGATIVE) 10/16/17 10/16/17 10/17/17 Range/Units 06:05 06:05 06:19 WBC (4.2-12.2) K/uL MCV 98.6 H 99.1 H (81-97) fl MCHC 31.9 L 31.4 L (32-36) g/dl RDW (11.5-14.5) % Lymphocytes % 8.1 L (16-45) % Monocytes % 9.7 H (0-9) % Lymphocytes (16-45) % Monocytes 16.0 H (0-9) % BUN (6-20) mg/dL Creatinine 1.2 H (0.5-0.9) mg/dL POC Glucose (70-110) mg/dL Random Glucose 136 H (74-109) mg/dL Calcium 10.8 H (8.6-10.0) mg/dL Total Protein (6.6-8.7) g/dL Albumin 3.9 L (4.0-5.0) g/dL Lipase (13-60) U/L Urine Protein (NEGATIVE) Urine Blood (NEGATIVE) Ur Leukocyte Esterase (NEGATIVE) 10/17/17 Range/Units 06:19 WBC (4.2-12.2) K/uL MCV (81-97) fl MCHC (32-36) g/dl RDW (11.5-14.5) % Lymphocytes % (16-45) % Monocytes % (0-9) % Lymphocytes (16-45) % Monocytes (0-9) % BUN (6-20) mg/dL Creatinine 1.3 H (0.5-0.9) mg/dL POC Glucose (70-110) mg/dL Random Glucose 138 H (74-109) mg/dL Calcium 10.9 H (8.6-10.0) mg/dL Total Protein (6.6-8.7) g/dL Albumin 3.7 L (4.0-5.0) g/dL Lipase (13-60) U/L Urine Protein (NEGATIVE) Urine Blood (NEGATIVE) Ur Leukocyte Esterase (NEGATIVE) Condition at Discharge: (2) Stable VTE Discharge VTE Reason For No Overlap Therapy: Not Indicated (Mobility not impaired) Discharge Medications - Discharge Medications Prescriptions: Ciprofloxacin HCl [Cipro] 500 mg PO Q12HR #8 tablet Cyclobenzaprine HCl 10 mg PO DAILY #5 tablet Ibuprofen [Motrin 600Mg] 600 mg PO Q8H PRN #24 tablet PRN Reason: Fever Phenazopyridine HCl [Azo Urinary Pain Relief] 95 mg PO TID #24 tablet Home Medications: Ambulatory Orders Alendronate Sodium [Fosamax] 70 mg PO DAILY 10/14/17 [Last Taken Unknown] Alendronate Sodium [Fosamax] 70 mg PO DAILY 10/14/17 [Last Taken Unknown] Allopurinol [Zyloprim] 300 mg PO DAILY 10/14/17 [Last Taken Unknown] Allopurinol [Zyloprim] 300 mg PO DAILY 10/14/17 [Last Taken Unknown] Atorvastatin Calcium [Lipitor] 10 mg PO DAILY 10/14/17 [Last Taken Unknown] Cetirizine HCl 10 mg PO DAILY 10/14/17 [Last Taken Unknown] Diltiazem HCl [Diltiazem 24Hr ER] 120 mg PO DAILY 10/14/17 [Last Taken Unknown] Diphenhydramine HCl [Benadryl] 25 mg PO DAILY 10/14/17 [Last Taken Unknown] Duloxetine HCl [Cymbalta] 60 mg PO DAILY 10/14/17 [Last Taken Unknown] Ergocalciferol (Vitamin D2) [Vitamin D2] 50,000 unit PO WEEKLY 10/14/17 [Last Taken Unknown] Fexofenadine HCl [Esthela Allergy] 60 mg PO DAILY 10/14/17 [Last Taken Unknown] Fluticasone/Vilanterol [Breo Ellipta 200-25 Mcg INH] 1 each IH DAILY 10/14/17 [ Last Taken Unknown] Folic Acid 1 mg PO DAILY 10/14/17 [Last Taken Unknown] Levothyroxine Sodium 125 mcg PO DAILY 10/14/17 [Last Taken Unknown] Nystatin 5 ml PO DAILY 10/14/17 [Last Taken Unknown] Ondansetron HCl [Zofran] 4 mg PO ASDIR 10/14/17 [Last Taken Unknown] Sitagliptin Phosphate [Januvia] 50 mg PO DAILY 10/14/17 [Last Taken Unknown] Topiramate [Topamax] 50 mg PO DAILY 10/14/17 [Last Taken Unknown] Acetaminophen [Tylenol 500Mg Tab] 1,000 mg PO Q6H PRN tablet 10/17/17 [Last Taken Unknown] Ciprofloxacin HCl [Cipro] 500 mg PO Q12HR #8 tablet 10/17/17 [Last Taken Unknown ] Cyclobenzaprine HCl 10 mg PO DAILY #5 tablet 10/17/17 [Last Taken Unknown] Ibuprofen [Motrin 600Mg] 600 mg PO Q8H PRN #24 tablet 10/17/17 [Last Taken Unknown] Montelukast Sodium [Singulair] 10 mg PO DAILY tab 10/17/17 [Last Taken Unknown] Phenazopyridine HCl [Azo Urinary Pain Relief] 95 mg PO TID #24 tablet 10/17/17 [ Last Taken Unknown] Discharge Plan - Discharge Instructions Activity at Discharge: Increase Activity as Tolerated Diet at Discharge: Diabetic Diet Additional Instructions: Follow up with your PCP within 3-5 days. Recommend f/u with nephrology for renal status/lupus involvement. Continue Cipro 500mg twice daily until complete (first dose at 10pm tonight). Take with food to avoid upset stomach. Alternate tylenol and motrin for fever. Return to the ED if your symptoms worsen, or for any chest pain. Quality Measures - Quality Measures Quality Measures: Documentation of Current Medications in Medical Record, Screening for High Blood Pressure and F/U Documented - Current Medications Quality Measure: Measure #130: Documentation of Current Medications Documentation of Current Medications: <Current Medications Documented/Reviewed> [G8427] - Blood Pressure Screening Quality Measure: Screening for High Blood Pressure and Follow-Up Documented Does Patient Have Any of the Following: Active Dx of HTN Blood Pressure Classification: Hypertensive Reading Systolic Measurement: 160 Diastolic Measurement: 79 Screening for High Blood Pressure: Patient Exclusion, Hx of HTN [G9744] - Elder Abuse Suspicion Index EASI Reference Information: Nash LESTER, Uyen C, Shabnam D, Louise Anaya.Development and validation of a tool to assist physicians identification of elder abuse: The Elder Abuse Suspicion Index (EASI ). Journal of Elder Abuse and Neglect, 2008; 20 (3): 276-300.
[2017-10-17] MEDS: DULOXETINE HCL 30 MG CAPSULE.DR PO SCH (09:50)
[2017-10-17] MEDS: TOPIRAMATE 25MG TABLET PO SCH (09:52)
[2017-10-17] MEDS: LORATADINE 10 MG TABLET PO SCH (09:52)
[2017-10-17] MEDS: DILTIAZEM HCL 120 MG ER CAPSULE PO SCH (09:52)
[2017-10-17] MEDS: CIPROFLOXACIN HCL 500 MG TABLET PO SCH (09:52)
[2017-10-17] MEDS: ALLOPURINOL 100 MG TAB PO SCH (09:52)
[2017-10-17] MEDS: JANUVIA 50 MG MC SCH (09:53)
[2017-10-17] MEDS: PHENAZOPYRIDINE HCL 95 MG TABLET PO SCH (09:53)
[2017-10-17] MEDS: CYCLOBENZAPRINE 10MG TABLET PO SCH (09:53)
[2017-10-17] MEDS: ENOXAPARIN 40 MG/0.4 ML SYR SQ SCH (09:53)
[2017-10-17] MEDS ORDERED: MONTELUKAST SODIUM 10MG TABLET PO SCH (10:00)
[2017-10-17] MEDS ORDERED: ATORVASTATIN 20 MG TABLET PO SCH (10:00)
[2017-10-17] MEDS ORDERED: LOSARTAN POTASSIUM 100 MG TABLET PO SCH (10:00)
[2017-10-17] MEDS: BREO (FLUTICASONE/VILANTEROL) 200MCG/25MCG INHALER INH SCH (10:27)
== END 2017-10-17 11:02 | disposition home or self-care (01) | DRG 690 ==
LOC: ER 17:19 → MEDSURG 20:02
PROVIDERS: ADMIT Internal Medicine; ATTEND Internal Medicine
DX: N12 Tubulo-interstitial nephritis, not specified as acute or chronic (principal); D89.9 Disorder involving the immune mechanism, unspecified; R11.2 Nausea with vomiting, unspecified; M32.9 Systemic lupus erythematosus, unspecified; M79.7 Fibromyalgia; N28.9 Disorder of kidney and ureter, unspecified; E11.9 Type 2 diabetes mellitus without complications; E03.9 Hypothyroidism, unspecified; J45.909 Unspecified asthma, uncomplicated
CPT/HCPCS: 36416; 74176; 80053; 81001; 82948; 83605; 83690; 85025; 85027; 96365; 96366; 99223; 99233; 99239; 99285; J1650; J7030